=== PATIENT | female | born 1990 ===

== ENCOUNTER 2021-10-05 09:52 | Observation (INO) | payer OTHER ==
[2021-10-05] MEDS ORDERED: ONDANSETRON 4 MG/2 ML INJ IV PRN (10:36)
[2021-10-05] MEDS ORDERED: DOCUSATE SODIUM 100 MG CAP PO PRN (10:36)
[2021-10-05] MEDS ORDERED: ACETAMINOPHEN 325 MG TAB PO PRN (10:36)
[2021-10-05] MEDS ORDERED: diphenhydrAMINE 25 MG CAP PO PRN (10:36)
[2021-10-05] MEDS ORDERED: SODIUM CHLORIDE 0.9% 500 ML 500 ML IV ONE (11:30)
--- NOTE | 2021-10-05 14:46 | History and Physical Report ---
History of Present Illness Date of examination: 10/05/21 Date of admission: 10/05/21 09:53 Chief complaint: symptomatic anemia History of present illness: Pt is 31 year old female DANGELO 12/21/21 at 29w0d with mono-di twin who presents with fatigue, and dyspnea on exertion and hemoglobin found to be 6.7. She was referred to Hematolgoy who are unable to assist this patient until she received a blood transfusion. She receives care at [place] [facility] since transferring to care 23 weeks complicated by aforementioned mono Di twin , anemia. Her GBS status is unknown Past History Past Medical History: hematologic disorders (anemia ) Past Surgical History: no surgical history Social history: no significant social history - Obstetrical History Expected Date of Delivery: 12/21/21 Actual Gestation: 29 Week(s) 0 Day(s) : 5 Para: 2 Hx # Term Pregnancies: 2 Number of Pregnancies: 0 Spontaneous Abortions: 2 Induced : 0 Number of Living Children: 2 Medications and Allergies Allergies Allergy/AdvReac Type Severity Reaction Status Date / Time No Known Allergies Allergy Unverified 12/11/13 18:32 Home Medications Medication Instructions Recorded Confirmed Last Taken Type miSOPROStoL [Cytotec] 400 mcg PO Q4H #2 tablet 12/11/13 11/05/14 Unknown Rx Docusate Sodium [Colace CAP] 100 mg PO BID PRN #60 capsule 11/06/14 Unknown Rx Ferrous Sulfate [Feosol 325 MG tab] 325 mg PO TID #90 tablet 11/06/14 Unknown Rx Ibuprofen [Motrin 600 MG tab] 600 mg PO Q6H PRN #40 tablet 11/06/14 Unknown Rx Vit-Fe Fumar-FA [ 1 tab PO QDAY #30 tablet 11/06/14 Unknown Rx Vitamin] oxyCODONE /ACETAMINOPHEN [Percocet 1 tab PO Q6HR PRN #30 tablet 11/06/14 Unknown Rx 5/325 mg] Active Meds: Active Medications Acetaminophen (Acetaminophen 325 Mg Tab) 650 mg PO Q4H PRN PRN Reason: Pain MILD(1-3)/Fever >100.5/[place] Diphenhydramine HCl (Diphenhydramine 25 Mg Cap) 25 mg PO Q6H PRN PRN Reason: Itching Docusate Sodium (Docusate Sodium 100 Mg Cap) 100 mg PO Q12H PRN PRN Reason: Constipation Multivitamins/Iron/Calcium ( Awh00-Kl Fumarate-Folic Acid Vit Tab) 1 each PO QDAY MEHNAZ Ondansetron HCl (Ondansetron 4 Mg/2 Ml Inj) 4 mg IV Q6H PRN PRN Reason: Nausea And Vomiting Review of Systems All systems: negative Constitutional: fatigue Cardiovascular: dyspnea on exertion - Vital Signs Vital signs: Vital Signs Pulse Pulse Ox 74 99 10/05/21 11:47 10/05/21 11:47 Temp Pulse Resp BP Pulse Ox 99.2 F 66 106/68 99 10/05/21 12:09 10/05/21 14:38 10/05/21 11:49 10/05/21 14:38 - Physical Exam Breasts: Positive: deferred Uterus: Positive: enlarged (gravid ) Extremities: Negative: edema Results All other labs normal. Assessment and Plan A:[place]-Di at 29w0d Symptomatic Anemia P: CBC, Type and Screen Transfuse 2 units PRBCs Monitor clinically
[2021-10-05 14:50] LABS: Basophils % (Auto) 0.4 % (0.0-1.8); Eosinophils # (Auto) 0.1 K/mm3 (0.0-0.4); Eosinophils % (Auto) 0.6 % (0.0-4.3); Hematocrit 21.1 % (30.3-42.9); Hemoglobin 6.7 gm/dl (10.1-14.3); Lymphocytes # (Auto) 1.2 K/mm3 (1.2-5.4); Lymphocytes % (Auto) 14.6 % (13.4-35.0); Mean Corpuscular HGB Conc 32 % (30-34); Monocytes # (Auto) 0.5 K/mm3 (0.0-0.8); Monocytes % (Auto) 5.6 % (0.0-7.3); Platelet Count 132 K/mm3 (140-440); Red Blood Count 3.13 M/mm3 (3.65-5.03); Red Cell Distribution Width 18.3 % (13.2-15.2)
[2021-10-05 16:12] LABS: Mean Corpuscular Volume 67 fl (79-97)
[2021-10-05] MEDS ORDERED: SODIUM CHLORIDE 0.9% 250ML 250 ML ONE (16:38)
[2021-10-05] MEDS ORDERED: SODIUM CHLORIDE 0.9% 1000 ML 1,000 ML ONE (20:30)
[2021-10-06 02:19] LABS: Hematocrit 25.4 % (30.3-42.9); Mean Corpuscular HGB Conc 32 % (30-34); Mean Corpuscular Volume 74 fl (79-97); Platelet Count 108 K/mm3 (140-440); Red Blood Count 3.44 M/mm3 (3.65-5.03)
[2021-10-06 02:33] LABS: Red Cell Distribution Width 23.3 % (13.2-15.2)
[2021-10-06 02:49] VITALS: BP 112/66
[2021-10-06] MEDS ORDERED: PRENATAL VIT27-FE FUMARATE-FOLIC ACID VIT TAB PO SCH (11:00)
== END 2021-10-06 02:58 | disposition home or self-care (01) ==
LOC: TRG 09:52 → LD 09:53 → APU 10:41 → TRG 11:08 → APU 11:27
PROVIDERS: ADMIT Obstetrics & Gynecology; ATTEND Obstetrics & Gynecology
DX: O99.013 Anemia complicating pregnancy, third trimester (principal); D64.9 Anemia, unspecified; O30.033 Twin pregnancy, monochorionic/diamniotic, third trimester; Z3A.29 29 weeks gestation of pregnancy
CPT/HCPCS: 36415; 36430; 85025; 85027; 86850; 86900; 86901; 86920; G0378; P9016

== ENCOUNTER 2021-12-04 06:04 | Inpatient (IN) | payer OTHER ==
--- NOTE | 2021-12-03 17:25 | History and Physical Report ---
History of Present Illness Date of examination: 11/28/21 Chief complaint: Scheduled section History of present illness: Pt is a 31 year old female DANGELO 12/21/21 at 37w4d with mono-di twin who presents for scheduled section secondary to malpresentation of twin B. She is averse to the notion of having one baby vaginally, and the other via section and desires scheduled section. She reports irregular contractions, and denies vaginal bleeding or leakage of fluid. She has had care at [facility] with comanagement by [facility] secondary to aforementioned mono-di twin , severe anemia s/p transfusion of 2 units PRBCs, thrombocytopenia (plts 91,000 on 11/14/21), glucose intolerance. She is GBS negative. Past History Past Medical History: hematologic disorders (Anemia, Thrombocytopenia ) Past Surgical History: no surgical history PHOTOGEOLOGIST History: other (HPV, HSV-1) Family/Genetic History: diabetes, heart disease, hypertension Social history: no significant social history - Obstetrical History Expected Date of Delivery: 12/21/21 Actual Gestation: 37 Week(s) 3 Day(s) : 5 Para: 2 Hx # Term Pregnancies: 2 Number of Pregnancies: 0 Spontaneous Abortions: 2 Induced : 0 Number of Living Children: 2 Medications and Allergies Allergies Allergy/AdvReac Type Severity Reaction Status Date / Time No Known Allergies Allergy Unverified 12/11/13 18:32 Home Medications Medication Instructions Recorded Confirmed Last Taken Type miSOPROStoL [Cytotec] 400 mcg PO Q4H #2 tablet 12/11/13 11/05/14 Unknown Rx Docusate Sodium [Colace CAP] 100 mg PO BID PRN #60 capsule 11/06/14 Unknown Rx Ferrous Sulfate [Feosol 325 MG tab] 325 mg PO TID #90 tablet 11/06/14 Unknown Rx Ibuprofen [Motrin 600 MG tab] 600 mg PO Q6H PRN #40 tablet 11/06/14 Unknown Rx Vit-Fe Fumar-FA [ 1 tab PO QDAY #30 tablet 11/06/14 Unknown Rx Vitamin] oxyCODONE /ACETAMINOPHEN [Percocet 1 tab PO Q6HR PRN #30 tablet 11/06/14 Unknown Rx 5/325 mg] Active Meds: Active Medications Citric Acid/Sodium Citrate (Bicitra Oral Liqd 30ml) 30 ml PO ONCE ONE Stop: 12/04/21 06:01 Famotidine (Famotidine 20 Mg/2 Ml Inj) 20 mg IV ONCE ONE Stop: 12/04/21 06:01 Lactated Ringer's (Lactated Ringers) 1,000 mls @ 2,250 mls/hr IV PREOP MEHNAZ Stop: 12/05/21 06:27 Oxytocin/Sodium Chloride (Pitocin/Ns 30 Unit/500ml) 30 units in 500 mls @ 0 mls/hr IV TITR MEHNAZ; Protocol Cefazolin Sodium (Ancef/Sterile Water 2 Gm/20 Ml) 2 gm in 20 mls @ 80 mls/hr IV PREOP NR; Protocol Metoclopramide HCl (Metoclopramide 10 Mg/2 Ml Inj) 10 mg IV ONCE ONE Stop: 12/04/21 06:01 Review of Systems All systems: negative - Physical Exam Breasts: Positive: deferred Abdomen: Positive: soft (gravid ) Uterus: Positive: enlarged (gravid ) Extremities: Positive: edema (1+) - Obstetrical FHR: auscultation normal Uterine Contraction Monitor Mode: External Uterine Contraction Pattern: Irregular Uterine Tone Measurement Phase: Resting Results All other labs normal. Assessment and Plan A: [place]-di twin IUP at 37w4d Malpresentation of twin B with maternal preference for scheduled delivery Severe anemia s/p transfusion of 2 units PRBCs in September 2021 Thrombocytopenia Glucose intolerance GBS negative P: Ultrasound to confirm presentation of fetuses Proceed with primary section and other indicated procedures Cell saver requested
[~2021-12-04 06:04] MED LIST: BICITRA ORAL LIQD 30ML PO NR; FAMOTIDINE 20 MG/2 ML INJ IV NR; METOCLOPRAMIDE 10 MG/2 ML INJ IV NR; OXYTOCIN DRIP 30 UNITS/500 ML BAG IV SCH; ceFAZolin/Water 2 GM/20 ML 2 GM/20 ML SYRINGE IV NR
[2021-12-04 07:16] LABS: Hematocrit 34.4 % (30.3-42.9); Hemoglobin 10.9 gm/dl (10.1-14.3); Mean Corpuscular HGB Conc 32 % (30-34); Mean Corpuscular Volume 83 fl (79-97); Red Blood Count 4.14 M/mm3 (3.65-5.03)
--- NOTE | 2021-12-04 07:21 | Anesthesia Day of Surgery ---
Anesthesia Day of Surgery - Day of Surgery Patient Examined: Yes Patient H&P Reviewed: Yes Patient is NPO: Yes
--- NOTE | 2021-12-04 07:22 | Anesthesia Consultation ---
Anesthesia Consult and Med Hx Date of service: 12/04/21 - Airway Anesthetic Teeth Evaluation: Good ROM Head & Neck: Adequate Mental/Hyoid Distance: Adequate Mallampati Class: Class II Intubation Access Assessment: Probably Good - Pulmonary Exam CTA: Yes - Cardiac Exam Cardiac Exam: RRR - Pre-Operative Health Status ASA Pre-Surgery Classification: ASA2 Proposed Anesthetic Plan: Spinal - Pulmonary Hx Smoking: No Hx Asthma: No Hx Respiratory Symptoms: No COPD: No Hx Pneumonia: No - Cardiovascular System Hx Hypertension: No - Central Nervous System Hx Seizures: No Hx Psychiatric Problems: No - Endocrine Hx Renal Disease: No Hx End Stage Renal Disease: No Hx Hypothyroidism: No Hx Hyperthyroidism: No - Hematic Hx Anemia: Yes (severe anemia s/p transfusion of 2 units PRBCs, infusions) Hx Sickle Cell Disease: No - Other Systems Hx Alcohol Use: No Hx Substance Use: No - Additional Comments Anesthesia Medical History Comments: severe anemia s/p transfusion of 2 units PRBCs, thrombocytopenia (plts 91,000 on 11/14/21), awaiting Plt level 86 today
[2021-12-04 07:47] LABS: Red Cell Distribution Width 31.2 % (13.2-15.2)
[2021-12-04] MEDS ORDERED: METHYLERGONOVINE MALEATE 0.2 MG/ML VIAL IM PRN (07:47)
[2021-12-04] MEDS ORDERED: CARBOPROST TROMETHAMINE 250 MCG/1 ML INJ IM ONE (07:47)
[2021-12-04] MEDS ORDERED: DIPHENOXYLATE/ATROPINE TAB PO PRN (07:47)
[2021-12-04] MEDS: LACTATED RINGERS 1,000 ML IV SCH ×2 (07:48→08:22)
[2021-12-04] MEDS ORDERED: ANTICOAGULANT SOD CITRATE SOLUTION MC ONE (07:52)
[2021-12-04] MEDS ORDERED: ONDANSETRON 4 MG/2 ML INJ ONE (07:54)
[2021-12-04] MEDS ORDERED: BUPIVACAINE/PF (0.5%) 5 MG/1 ML 30 ML VIAL INFILTRATI ONE (07:54)
[2021-12-04] MEDS ORDERED: PHENYLEPHRINE 10 MG/1 ML INJ SDV ONE (07:55)
[2021-12-04] MEDS ORDERED: SODIUM CHLORIDE 0.9% 100 ML ONE ×2 (07:55→10:47)
[2021-12-04] MEDS ORDERED: SODIUM CHLORIDE 0.9% 500 ML 500 ML IV ONE (07:56)
[2021-12-04] MEDS ORDERED: miSOPROStol 200 MCG TAB PR ONE (08:00)
[2021-12-04 08:02] LABS: Eosinophils # (Auto) 0.1 K/mm3 (0.0-0.4); Eosinophils % (Auto) 1.5 % (0.0-4.3); Monocytes # (Auto) 0.3 K/mm3 (0.0-0.8); Monocytes % (Auto) 5.9 % (0.0-7.3)
--- NOTE | 2021-12-04 08:13 | Ultrasound Report ---
ULTRASOUND OBSTETRIC LIMITED INDICATION / CLINICAL INFORMATION: Twin IUP at 37 wks. Clinical Gestational Age (GA) in weeks, days: 37, 4 TECHNIQUE: Transabdominal. COMPARISON: None available. FINDINGS: There is a twin gestation. HEART RATE (beats per minute): Twin A: 131 bpm, twin B: 156 bpm. PRESENTATION: Twin A is in cephalic presentation twin B is in breech presentation. ADDITIONAL FINDINGS: None. IMPRESSION: 1. Twin A is in a cephalic presentation and twin B is in a breech presentation. Signer Name: Ilir Lanier MD Signed: 12/04/2021 8:09 AM Workstation Name: [employer]
[2021-12-04 08:32] LABS: Platelet Count 86 K/mm3 (140-440)
[2021-12-04 08:55] LABS: Band Neutrophils # (Manual) 0.1 K/mm3; Basophils % (Manual) 0 % (0.0-1.8); Hypochromasia Few; Myelocytes # (Manual) 0.1 K/mm3; Platelet Clumps 1+; Total Cells Counted 100
[2021-12-04 08:56] LABS: Large Platelets Few; Platelet Estimate Consistent w Auto
[2021-12-04] MEDS ORDERED: ceFAZolin/STERILE WATER 2 GM/20 ML SYRINGE IV ONE (09:06)
[2021-12-04] MEDS ORDERED: SODIUM CHLORIDE 0.9% IRR 1,500 ML BOTTLE IR ONE (09:06)
[2021-12-04] MEDS ORDERED: TRANEXAMIC ACID 1,000 MG/10 ML ONE (09:07)
[2021-12-04] MEDS ORDERED: LACTATED RINGERS 1,000 ML ONE (09:36)
--- NOTE | 2021-12-04 10:03 | Procedure Note ---
OB Delivery Note - Delivery Date of Delivery: 12/04/21 Surgeon: WILFREDO HOFFMAN Estimated blood loss: 1000cc - Section Preop diagnosis: breech, other (mono-di twin IUP) Postop diagnosis: same section procedure: section, primary low transverse Disposition: PACU Complications: none Narrative: Please see operative report - Infant A at 1 minute: 9 at 5 minutes: 9 Infant Gender: Female (3030g (6lb 11oz) @ 0920am) B at 1 minute: 9 at 5 minutes: 9 Gender: Female (2430g (5lb 6oz) @ 0921 am)
--- NOTE | 2021-12-04 10:03 | Operative Report ---
Operative Report Operative Report: Date of procedure: December 04, 2021 Preoperative diagnosis: [place]-Di Twin IUP at 37w4d 2) Malpresentation of Twin B 3) Anemia 4) Thrombocytopenia Postoperative diagnosis: Same Procedure: Primary low transverse section Surgeon: Nabila Bueno M.D. Anesthesia: Regional Findings: 1) Twin A: Viable female , Apgars 9 and 9, weight 3030g, (6 lb 11 oz) in cephalic presentation. Twin B: Viable female , Apgras 9 and 9, weight 2430g, (5lb 6oz) in complete breech presentation 2) Normal-appearing uterus,ovaries and tubes Estimated blood loss: 1000 mL IV fluids: 1900 mL Urine output: 400 mL, clear at the end of the procedure Drains: Blackmon to gravity Specimens: Placenta to pathology Complications:None. Counts correct x 3 Disposition: Stable to PACU Indication for procedure: Pt is a 31 year old female at 37w4d with mono-di twins, twin B in breech presentation, h/o anemia s/p blood transfusion in September 2021 and iron infusions, and thrombocytopenia presents for scheduled section. Operation in detail: After the risks, benefits, alternatives and complications were explained to the patient she gave informed consent for the procedure. She was subsequently taken to the operating room where regional anesthesia was noted to be adequate. She was placed in the dorsal supine position with leftward tilt and prepped and draped in a normal sterile fashion. heart tones x 2 were noted prior to incision. A timeout was performed. A Pfannenstiel skin incision was made with the knife and carried down to the layer of the fascia with the Bovie. The fascia was incised in the midline and the fascial incision was extended bilaterally with the Bovie. The fascial incision was then stretched. The rectus muscles were then in the midline for adequate visualization. The peritoneum was then entered bluntly. The peritoneal incision was extended with good visualization of the bladder. The peritoneal incision was then stretched. An Thomas retractor was placed. The bladder blade was then placed. The vesicouterine peritoneum was grasped with smooth pick ups and incised with Metzenbaum scissors. A bladder flap was then created digitally and the bladder blade was replaced. A transverse incision was made in the lower uterine segment with a knife and stretched. Amniotomy for twin A was performed with egress of clear fluid. head delivered with ease, followed by shoulders and body. bulb suctioned at delivery. Cord clamped and cut. handed to NICU staff in attendance. Amniotomy for twin B was performed yielding clear fluid. The buttocks were delivered, followed by legs and covered with a moist towel. Next the torso, arms and finally head were delivered. bulb suctioned at delivery. Cord clamped and cut. handed to NICU staff in attendance. The placenta was then delivered manually. The uterus was then exteriorized and cleared of all clots and debris. The hysterotomy was then reapproximated with 0 Monocryl in a running locked fashion. A second layer of the same suture was used in imbricating fashion. The hysterotomy was inspected and hemostasis was noted. The gutters were irrigated and cleared of all clots and debris. The uterus was placed back into the peritoneal cavity. The hysterotomy was again inspected and noted to be hemostatic. Surgicel was placed over the hysterotomy. The Thomas retractor was removed. The peritoneum was reapproximated with 0 Monocryl in a running fashion incorporating the rectus muscles. Surgicel was placed over the rectus muscles. The fascia was reapproximated with 0 Vicryl in a running fashion. The subcutaneous tissue was reapproximated with 3-0 Vicryl in a running fashion. The skin was reapproximated with 3-0 Monocryl in a subcuticular fashion. The incision was then covered with steri strips and a pressure dressing. The procedure was then ended. The patient tolerated the procedure well and was taken to the PACU in stable condition. All instrument, lap, and needle counts were correct 3.
--- NOTE | 2021-12-04 10:25 | Progress Note ---
Spinal Anesthesia Block - Spinal Anesthesia Block Start Time: 08:36 Stop Time: 08:47 Performed by:: ROSMERY RODRIGUEZ Procedure: Patient IDed, H&P reviewed, all questions and concerns were answered, and consent was signed. Timeout was performed at bedside. Patient in sitting position. Sterile prep and drape was performed. [5] ml of 1% lidocaine skin wheal at L[3]- L [4]. Needle introducer advanced. 24 gauge spinal needle advanced. Clear, free flowing CSF. negative blood, negative paresthesia. Spinal dose given. All needles removed. Patient tolerated procedure.
[2021-12-04] MEDS ORDERED: dexAMETHasone 20 MG/5 ML VIAL ONE (10:47)
[2021-12-04] MEDS ORDERED: IBUPROFEN 600 MG TAB PO PRN (13:05)
[2021-12-04] MEDS ORDERED: MAGNESIUM HYDROXIDE (MOM) ORAL LIQD UDC PO PRN (13:05)
[2021-12-04] MEDS ORDERED: WITCH HAZEL/ GLYCERIN PAD TP PRN (13:05)
[2021-12-04] MEDS ORDERED: D5W/LACTATED RINGERS 1,000 ML IV SCH (13:05)
[2021-12-04] MEDS ORDERED: ONDANSETRON 4 MG/2 ML INJ IV PRN (13:05)
[2021-12-04] MEDS ORDERED: OXYTOCIN DRIP 30 UNITS/500 ML BAG IV SCH (13:05)
[2021-12-04] MEDS ORDERED: LANOLIN/ZINC/DIMETHICONE (LANSINOH) 7 GM TP PRN (13:05)
[2021-12-04] MEDS ORDERED: HYDROmorphone 0.5 MG/0.5 ML INJ IV PRN (13:05)
[2021-12-04] MEDS ORDERED: ACETAMINOPHEN 325 MG TAB PO PRN (13:05)
[2021-12-04] MEDS ORDERED: NALOXONE 0.4 MG/1 ML INJ IV PRN (13:05)
[2021-12-04] MEDS: HYDROmorphone 0.5 MG/0.5 ML INJ IV PRN ×2 (13:24→16:43)
[2021-12-04] MEDS: ceFAZolin/NS 1 GM/50 ML 1 GM/50 ML BAG IV SCH ×2 (14:42→21:11)
[2021-12-04] MEDS: HYDROcodone/ACETAMINOPHEN 5-325 MG TAB PO PRN (20:59)
[2021-12-04 22:57] LABS: Hematocrit 27.1 % (30.3-42.9)
[2021-12-05] MEDS: HYDROcodone/ACETAMINOPHEN 5-325 MG TAB PO PRN (04:51)
[2021-12-05] MEDS: HYDROmorphone 0.5 MG/0.5 ML INJ IV PRN (08:12)
[2021-12-05] MEDS: SIMETHICONE 80 MG CHEW TAB PO PRN (08:12)
--- NOTE | 2021-12-05 08:44 | Progress Note ---
Assessment and Plan - Patient Problems (1) delivery delivered Current Visit: Yes Status: Acute Plan to address problem: Routine postoperative care Patient doing well Subjective - Subjective Date of service: 12/05/21 Interval history: Patient experiencing some minor postoperative discomfort. She was recently given Dilaudid for her pain. Her Blackmon has been removed. Patient reports: no nauseated [place]: doing well Objective - Vital Signs Latest vital signs: Vital Signs Temp Pulse Resp BP BP Pulse Ox Pulse Ox 12/05/21 05:50 98 12/05/21 04:00 98.6 F 77 16 114/79 12/05/21 03:10 98 12/05/21 02:00 98 12/05/21 01:08 98.0 F 53 L 16 133/78 97 12/04/21 23:20 98 12/04/21 22:00 98 12/04/21 21:00 98 12/04/21 20:20 98.0 F 65 18 156/64 97 12/04/21 16:35 98.2 F 49 L 18 126/80 98 12/04/21 14:05 77 123/75 12/04/21 12:35 98.1 F 52 L 18 149/76 99 99 12/04/21 12:00 42 L 12 133/72 12/04/21 11:45 48 L 22 130/68 12/04/21 11:30 48 L 14 134/75 12/04/21 11:15 51 L 19 115/67 12/04/21 11:00 97.9 F 47 L 16 110/65 12/04/21 10:45 51 L 16 96/55 12/04/21 10:30 51 L 12 100/60 12/04/21 10:25 63 11 L 108/52 12/04/21 10:20 56 L 15 105/56 12/04/21 10:15 98.1 F 56 L 14 98/39 Intake and Output 12/04/21 12/05/21 12/05/21 22:59 06:59 14:59 Intake Total 50 400 Output Total 950 1600 Balance -900 -1200 Intake: IV 50 ANCEF/NS 1 GM/50 ML 1 gm 50 In 50 ml @ 100 mls/hr IV Q8H [facility] Rx#:[id number] Oral 200 Intake, Free Water 200 Output: Urine 950 1600 Indwelling Catheter 950 Void 1600 Other: Total, Intake Amount 200 Total, Output Amount 350 800 # Voids Void 1 - Exam Abdomen: Present: normal appearance, soft - Labs Labs: Abnormal lab results 12/04/21 12/04/21 Range/Units 06:50 22:27 Hgb 9.0 L (10.1-14.3) gm/dl Hct 27.1 L D (30.3-42.9) % Seg Neuts % (Manual) 76.0 H (40.0-70.0) % Lymphocytes # (Manual) 0.7 L (1.2-5.4) K/mm3
[2021-12-05] MEDS ORDERED: TETANUS,DIPH,PERTUSS(ACELL) VACCINE 0.5 ML SYRINGE IM ONE (10:04)
[2021-12-05] MEDS: oxyCODONE /ACETAMINOPHEN 5-325MG TAB PO PRN (14:05)
[2021-12-06] MEDS: SIMETHICONE 80 MG CHEW TAB PO PRN (05:10)
--- NOTE | 2021-12-06 07:34 | Progress Note ---
Assessment and Plan A: POD#2 s/p primary at term Delayed return of bowel function Anemia P: Begin bowel regimen Encourage ambulation Hold diet at clear until she passes flatus Subjective - Subjective Date of service: 12/06/21 Principal diagnosis: POD#2 s/p primary Interval history: Pt reports no flatus. She is ambulating minimally. Voiding without difficulty. Patient reports: appetite normal, voiding normally, pain well controlled, no flatus, no bowel movement, no ambulating normally (minimally ) [place]: doing well Objective - Vital Signs Latest vital signs: Vital Signs Temp Pulse Resp BP BP Pulse Ox Pulse Ox 12/06/21 00:40 98.8 F 71 18 133/71 96 12/05/21 20:33 96 12/05/21 16:11 98.6 F 95 H 18 126/65 126/65 96 12/05/21 08:22 98.3 F 63 20 118/80 97 12/05/21 08:15 98 Intake and Output 12/05/21 12/06/21 12/06/21 22:59 06:59 14:59 Intake Total 360 Balance 360 Intake: Oral 240 Intake, Free Water 120 Other: Total, Intake Amount 240 # Voids Void 1 - Exam Breasts: Present: deferred Abdomen: Present: soft, distention (moderate, tympanic ) Uterus: Present: fundal height below umbilicus Extremities: Present: edema Incision: Present: dressed
[2021-12-06] MEDS: LACTULOSE 20 GM/30 ML ORAL LIQD PO SCH ×2 (07:41→16:56)
[2021-12-06] MEDS: HYDROmorphone 0.5 MG/0.5 ML INJ IV PRN (07:41)
[2021-12-06] MEDS ORDERED: IBUPROFEN 600 MG TAB PO SCH (08:00)
[2021-12-06] MEDS: oxyCODONE /ACETAMINOPHEN 5-325MG TAB PO PRN (23:40)
[2021-12-07] MEDS: LACTULOSE 20 GM/30 ML ORAL LIQD PO SCH
--- NOTE | 2021-12-07 08:29 | Progress Note ---
Assessment and Plan A: POD#3 s/p primary at term Anemia, asymptomatic P: Anticipate discharge later today with follow up in 1 wk Subjective - Subjective Date of service: 12/07/21 Principal diagnosis: POD#3 s/p primary Interval history: Pt had a bowel movement overnight. She would like to go home. Patient reports: appetite normal, voiding normally, pain well controlled, flatus, bowel movement, ambulating normally : doing well Objective - Vital Signs Latest vital signs: Vital Signs Temp Pulse Resp BP BP Pulse Ox Pulse Ox 12/06/21 22:49 98.6 F 72 18 126/79 96 12/06/21 20:34 97 12/06/21 16:54 98.5 F 59 L 18 129/82 129/82 97 Intake and Output 12/06/21 12/07/21 12/07/21 22:59 06:59 14:59 Intake Total 300 Balance 300 Intake: Intake, Free Water 300 Other: # Voids Void 1 1 # Bowel Movements 1 - Exam Breasts: Present: deferred Abdomen: Present: soft. Absent: distention Uterus: Present: fundal height below umbilicus Extremities: Present: edema (1+)
--- NOTE | 2021-12-07 08:33 | Discharge Summary ---
Providers - Providers Date of Admission: 12/04/21 09:21 Date of discharge: 12/07/21 Attending physician: WILFREDO BUENO 12/04/21 13:05 Consult to Machine Greaser [CONS] Routine Reason For Exam: Primary care physician: WILFREDO BUENO Hospitalization Reason for admission: section Delivery: Procedure: section, primary low transverse Procedure details: Please see operative report Incision: intact (with steri strips) complications: none Discharge diagnosis: IUP at term delivered baby: female (x 2) Hospital course: Patient was admitted for scheduled section which she underwent and tolerated well. Her postoperative course was complicated by delayed return of bowel function. However by postoperative day #3 she met discharge criteria. She will follow-up in the office with Dr. Bueno in 1 week Condition at discharge: Stable Disposition: 01 HOME / SELF CARE / HOMELESS - Discharge Diagnoses (1) Twin delivery by Status: Acute (2) Anemia Status: Acute Qualifiers: Anemia type: unspecified type Qualified Code(s): D64.9 - Anemia, unspecified (3) delivery delivered Status: Acute Plan - Discharge Medications Prescriptions: Lactulose [Cephulac] 20 gm PO Q12H PRN #473 ml PRN Reason: Constipation Ferrous Sulfate [Feosol 325 MG tab] 325 mg PO BID #60 tablet Furosemide [Lasix TAB] 40 mg PO QDAY #14 tablet Ibuprofen [Motrin] 600 mg PO Q6H PRN #30 tablet PRN Reason: Pain oxyCODONE /ACETAMINOPHEN [Percocet 5/325] 1 tab PO Q6HR PRN #30 tablet PRN Reason: Pain - Provider Discharge Summary Activity: routine, no sex for 6 weeks, no heavy lifting 4 weeks, no strenuous exercise Diet: routine Instructions: routine Additional instructions: [] Smoking cessation referral if applicable(refer to patient education folder for contact #) [] Refer to [facility] Booklet Call your doctor immediately for: * Fever > 100.5 * Heavy vaginal bleeding ( >1 pad per hour) * Severe persistent headache * Shortness of breath * Reddened, hot, painful area to leg or breast * Drainage or odor from incision. * Keep incision clean and dry at all times and follow doctor's instructions regarding bathing/showering - Follow up plan Follow up: WILFREDO BUENO MD [Primary Care Provider] - 7 Days
[2021-12-07 12:05] VITALS: BP 127/79
== END 2021-12-07 14:42 | disposition home or self-care (01) | DRG 787 ==
LOC: APU 06:04 → UNDOADMIN 06:04 → APU 08:57 → OB 12:31
PROVIDERS: ADMIT Obstetrics & Gynecology; ATTEND Obstetrics & Gynecology
PROC: 10D00Z1 Extraction of Products of Conception, Low, Open Approach (ICD-10-PCS; principal; 2021-12-04)
PROC: 3E0234Z Introduction of Serum, Toxoid and Vaccine into Muscle, Percutaneous Approach (ICD-10-PCS; 2021-12-05)
DX: O32.1XX2 Maternal care for breech presentation, fetus 2 (principal); O99.12 Other diseases of the blood and blood-forming organs and certain disorders involving the immune mechanism complicating childbirth; Z20.822 Contact with and (suspected) exposure to COVID-19; D69.6 Thrombocytopenia, unspecified; Z3A.37 37 weeks gestation of pregnancy; Z37.2 Twins, both liveborn; Z23 Encounter for immunization; O30.033 Twin pregnancy, monochorionic/diamniotic, third trimester; O99.02 Anemia complicating childbirth; O99.814 Abnormal glucose complicating childbirth
CPT/HCPCS: 36415; 76815; 85007; 85014; 85018; 85025; 86592; 86850; 86900; 86901; 88305; 88307; G0378; J3490; J7060; J7121; J0690; J1100; J1170; J2370; J2405; J2590; J2765; J7120; U0003